=== PATIENT | female | born 1950 | race African-American/Black ===

== ENCOUNTER 2019-11-12 09:12 | Emergency (ER) | payer BC, OTHER ==
[~2019-11-12] VITALS: Ht 167.6 cm; Wt 95.3 kg
[~2019-11-12 09:12] MED LIST: HYDROCHLOROTH12.5 MG PO; PERCOCET 5-3251 EACH PO; PHENERGAN25 MG RE; PREDNISONE 20 M20 MG PO; VICODIN
[2019-11-12] MEDS ORDERED: NORVASC5 MG PO (09:25)
[2019-11-12 10:50] LABS: HEMATOCRIT 38.2 % (37.0-47.0); HEMOGLOBIN 12.2 gm/dL (12.0-15.0); MCH 28.2 pg (26.0-34.0); MCV 88.1 fL (80.0-100.0); RBC 4.33 mil/uL (4.20-5.00); RDW 15.1 % (10.5-14.5); WBC 8.9 thou/uL (4.0-11.0)
[2019-11-12 10:58] LABS: CALCIUM 9.6 mg/dL (8.5-10.1); CREATININE 1.2 mg/dL (0.6-1.0)
[2019-11-12 11:01] LABS: URIC ACID* 7.6 mg/dL (2.6-7.2)
[2019-11-12] MEDS ORDERED: TRAMADOL 50 MG50 MG PO (11:24)
[2019-11-12] MEDS ORDERED: NAPROXEN375 MG PO (11:24)
[2019-11-12] MEDS ORDERED: COLCHICINE0.6 MG PO (11:24)
[2019-11-12 12:45] VITALS: BP 153/57
== END 2019-11-12 12:20 | disposition home or self-care (01) ==
LOC: ER 09:12
PROVIDERS: Emergency Medicine
DX: M10.9 Gout, unspecified (principal); M25.572 Pain in left ankle and joints of left foot; F17.210 Nicotine dependence, cigarettes, uncomplicated; Z79.899 Other long term (current) drug therapy

== ENCOUNTER 2021-03-23 08:46 | Emergency (ER) | payer BC, OTHER ==
[~2021-03-23] VITALS: Ht 167.6 cm; Wt 95.3 kg
[~2021-03-23 08:46] MED LIST changes: +COLCHICINE0.6 MG PO; +NAPROXEN375 MG PO; +NORVASC5 MG PO; +TRAMADOL 50 MG50 MG PO
[2021-03-23] MEDS ORDERED: MEDROLDOSEPACK PO (11:02)
[2021-03-23] MEDS ORDERED: NORCO5 PO (11:04)
[2021-03-23] MEDS ORDERED: DIAZEPAM 5 MG5 M1 PO (11:04)
[2021-03-23 11:40] VITALS: BP 130/69
== END 2021-03-23 11:30 | disposition home or self-care (01) ==
LOC: ER 08:46
DX: S23.3XXA Sprain of ligaments of thoracic spine, initial encounter (principal); S33.5XXA Sprain of ligaments of lumbar spine, initial encounter; M10.9 Gout, unspecified; F17.210 Nicotine dependence, cigarettes, uncomplicated; Z88.5 Allergy status to narcotic agent; X58.XXXA Exposure to other specified factors, initial encounter; Y93.89 Activity, other specified; Y92.89 Other specified places as the place of occurrence of the external cause; Y99.8 Other external cause status